=== PATIENT | female | born 1990 | race African-American/Black ===

== ENCOUNTER 2016-10-26 18:23 | Emergency (ER) | payer MEDICAID ==
[~2016-10-26] VITALS: Ht 157.5 cm; Wt 60.0 kg
[~2016-10-26 18:23] MED LIST: DOXY100T PO; PYRI200T4 PO
[2016-10-26 18:25] VITALS: BP 106/65; PULSE 51; RESP 12; TEMP 98.2; O2SAT 99
[2016-10-26] MEDS ORDERED: PENI250T59 PO (20:54)
[2016-10-26] MEDS ORDERED: NAPR500T PO (20:54)
--- NOTE | 2016-10-26 20:55 | PD ---
HPI Chief Complaint: Oral / Dental Pain or Problem Time Seen by Provider: 20:54 Travel History International Travel<30 days: No Contact w/Intl Traveler<30days: No Traveled to known affect area: No History of Present Illness HPI 26-year-old female presents to the emergency department for evaluation of right lower dental pain for about 4 months. Patient states that her right lower wisdom tooth has a cavity and she was told by her dentist that she needs to have removed. States that she has been putting off following up with a dentist but that the pain is worsened recently. She denies any fever, chills, nausea, vomiting, difficulty swallowing, facial swelling, discharge or drainage. Denies , last menstrual period one week ago. No other complaints. PFSH Past Medical History Medical History: Denies Significant Hx Diminished Hearing: No ?: Not LMP: 10/19/16 : 2 Para: 1 : 1 Past Surgical History Cardiac Surgery: Yes (Heart murmur 2006) Social History Alcohol Use: No Tobacco Use: No Substance Use: No Allergies-Medications (Allergen,Severity, Reaction): Coded Allergies: No Known Allergies (Unverified , 05/07/16) Reported Meds & Prescriptions Reported Meds & Active Scripts Active Penicillin Vk (Penicillin V Potassium) 250 Mg Tab 500 Mg PO Q8H 10 Days Naproxen 500 Mg Tab 500 Mg PO BID 7 Days Doxycycline Hyclate 100 mg (Doxycycline Hyclate) 100 Mg Tab 100 Mg PO Q12HR 14 Days Pyridium (Phenazopyridine HCl) 200 Mg Tab 200 Mg PO TIDPC Review of Systems Except as stated in HPI: all other systems reviewed are Neg Physical Exam Narrative GENERAL: Well-nourished and well-developed pleasant patient in no acute distress who is nontoxic appearing. SKIN: Warm and dry. HEAD: Normocephalic and atraumatic. No facial swelling. EYES: No injection, drainage, or hyphema noted. PERRLA. EOMI. ENT: No nasal drainage noted. Oropharynx is clear and the TMs are normal with good landmarks. DENTAL: Dental caries noted to right lower posterior wisdom tooth. No surrounding erythema or swelling. No discharge or drainage. No fluctuance. NECK: Supple and the trachea is midline. CARDIOVASCULAR: Regular rate and rhythm. RESPIRATORY: Breath sounds are equal bilaterally with no accessory muscle use, wheezing, rhonchi, or crackles. MUSCULOSKELETAL: No obvious deformities, swelling, cyanosis, or ecchymosis is present throughout the upper and lower extremities. NEUROLOGICAL: Awake, alert, and oriented. Normal speech and gait. Cranial nerves are grossly intact. Data Data Last Documented VS Vital Signs Date Time Temp Pulse Resp B/P Pulse Ox O2 Delivery O2 Flow Rate FiO2 10/26/16 18:25 98.2 51 12 106/65 99 Room Air MDM Medical Decision Making Medical Screen Exam Complete: Yes Emergency Medical Condition: Yes Differential Diagnosis Dental caries versus dental infection versus pulpitis versus gingivitis Narrative Course 26-year-old female presents to the emergency room for evaluation of right lower posterior dental pain. Patient is afebrile, vital signs are stable. Patient has a dental caries to this right lower wisdom tooth. We'll give her penicillin VK prophylactically and naproxen. Instructed to follow up with a dentist. Patient verbalizes understanding and agreement with treatment plan. Diagnosis Primary Impression: Pain due to dental caries Referrals: Dentist Additional Instructions: Take medications as prescribed with food and a full glass of water. Follow-up with your Dentist Return to the ED for any acute worsening of symptoms. Med/Other Pt SpecificInfo: Prescription(s) given Scripts Penicillin V Potassium (Penicillin Vk)250 Mg [id number] Mg PO Q8H 10 Days Ref 0 Prov:Gerhard Nick MD 10/26/16 Naproxen 500 Mg Uie295 Mg PO BID 7 Days Ref 0 Prov:Gerhard Nick MD 10/26/16 Disposition: 01 DISCHARGE HOME Condition: Stable Rachel Vivar Oct 26, 2016 20:55
== END 2016-10-26 21:35 | disposition home or self-care (01) ==
LOC: NEPB 18:23
DX: K02.9 Dental caries, unspecified (principal); K08.89 Other specified disorders of teeth and supporting structures
CPT/HCPCS: 99282